=== PATIENT | female | born 1960 | race Caucasian/White ===

== ENCOUNTER 2017-01-17 18:19 | Observation (INO) | payer OTHER ==
[~2017-01-17 18:19] MED LIST: CIPR500T2 PO; METR-1 PO; OXYC-360 PO; Z.0.NO CURRENT MEDS
[2017-01-17] MEDS ORDERED: ASPIRIN 81 MG CHEW TAB PO ONE (18:30)
[2017-01-17] MEDS ORDERED: SODIUM CHLORIDE 0.9% FLUSH 10 ML FLUSH IVF PRN (18:30)
[2017-01-17 18:33] VITALS: BP 150/79; PULSE 73; RESP 16; TEMP 98.7; O2SAT 98
[2017-01-17 18:35] VITALS: O2SAT 98
[2017-01-17 18:38] LABS: AUTOMATED NEUTROPHIL # 6.3 TH/MM3 (1.8-7.7); BASOPHIL % 0.4 % (0.0-2.0); EOSINOPHIL # 0.5 TH/MM3 (0-0.4); EOSINOPHIL % 5.1 % (0.0-4.0); HEMATOCRIT 40.6 % (35.0-46.0); HEMO FLAGS DIFF FINAL; LYMPH % 21.5 % (9.0-44.0); MEAN CELL VOLUME 86.2 FL (80.0-100.0); MEAN CORPUSCULAR HEMOGLOBIN 28.9 PG (27.0-34.0); MEAN CORPUSCULAR HGB CONC 33.5 % (32.0-36.0); MONO % 4.6 % (0.0-8.0); NEUT % 68.4 % (16.0-70.0); PLATELET COUNT 215 TH/MM3 (150-450); RED BLOOD COUNT 4.71 MIL/MM3 (4.00-5.30); RED CELL DISTRIBUTION WIDTH 12.8 % (11.6-17.2); WHITE BLOOD COUNT 9.2 TH/MM3 (4.0-11.0)
[2017-01-17] MEDS ORDERED: VENTAER INH (18:39)
[2017-01-17] MEDS ORDERED: ADVA250A INH (18:39)
--- NOTE | 2017-01-17 18:39 | RADHPO ---
EXAM DATE/TIME: 01/17/2017 18:35 [facility] COMPARISON: No previous studies available for comparison. INDICATIONS : Chest pain for 30 minutes MEDICAL HISTORY : None. SURGICAL HISTORY : None. ENCOUNTER: Initial ACUITY: 1 day PAIN SCORE: 8/10 LOCATION: Left chest FINDINGS: A single view of the chest demonstrates the lungs to be symmetrically aerated without evidence of mas s, infiltrate or effusion. The cardiomediastinal contours are unremarkable. Osseous structures are intact. CONCLUSION: No acute disease. Lupillo Pretty MD on January 17, 2017 at 18:37 Board Certified Radiologist. This report was verified electronically.
--- NOTE | 2017-01-17 18:42 | PD ---
HPI Chief Complaint: Chest Pain Time Seen by Provider: 18:27 Travel History International Travel<30 days: No Contact w/Intl Traveler<30days: No Traveled to known affect area: No History of Present Illness HPI Patient is a 57-year-old female presents emergency department for complaints of chest discomfort in the middle of her chest and epigastric area. Patient states started approximately 2030 minutes prior to arrival. She states she was just sitting in a chair when it started. She did not associate with any food. She states she's never had pain like this before. States was fairly mild now but was moderate prior to arrival. She did not try anything prior to arrival. Patient states she did have a stress test years ago for left-sided chest pain which is not similar to current. Denies any nausea vomiting shortness of breath abdominal pain back pain. PFSH Past Medical History Asthma: Yes ("SEASONAL") Anxiety: Yes Depression: Yes Menopausal: Yes Past Surgical History Section: Yes Other Surgery: Yes (SINUS SX) Social History Alcohol Use: No Tobacco Use: No Substance Use: No Allergies-Medications (Allergen,Severity, Reaction): Coded Allergies: Erythromycin (Verified Allergy, Severe, 01/17/17) Penicillin (Verified Allergy, Severe, HIVES, 01/17/17) Sulfa (Verified Allergy, Severe, HIVES, 01/17/17) Reported Meds & Prescriptions Reported Meds & Active Scripts Active Reported Ventolin Hfa 18 GM Inh (Albuterol Sulfate) 90 Mcg/Act Aer 1 Puff INH Q4H PRN Advair Diskus Inh (Fluticasone-Salmeterol Inh) 250-50 Mcg/Blist Aer 1 Puff INH BID PRN Rinse mouth after use. Review of Systems Except as stated in HPI: all other systems reviewed are Neg Physical Exam Narrative GENERAL: Well-developed well-nourished, no apparent distress, quite pleasant. SKIN: Focused skin assessment warm/dry. HEAD: Atraumatic. Normocephalic. EYES: Pupils equal and round. No scleral icterus. No injection or drainage. ENT: No nasal bleeding or discharge. Mucous membranes pink and moist. NECK: Trachea midline. No JVD. CARDIOVASCULAR: Regular rate and rhythm. No murmur appreciated. 2+ bilateral equal pulses in all 4 extremities. RESPIRATORY: No accessory muscle use. Clear to auscultation. Breath sounds equal bilaterally. GASTROINTESTINAL: Abdomen soft, non-tender, nondistended. Hepatic and splenic margins not palpable. MUSCULOSKELETAL: No obvious deformities. No clubbing. No cyanosis. No edema. NEUROLOGICAL: Awake and alert. No obvious cranial nerve deficits. Motor grossly within normal limits. Normal speech. PSYCHIATRIC: Appropriate mood and affect; insight and judgment normal. Data Data Last Documented VS Vital Signs Date Time Temp Pulse Resp B/P Pulse Ox O2 Delivery O2 Flow Rate FiO2 01/17/17 19:06 70 16 132/88 98 Room Air 01/17/17 18:33 98.7 Orders Electrocardiogram (01/17/17 18:) Ckmb (Isoenzyme) Profile (01/17/17 18:) Complete Blood Count With Diff (01/17/17) Comprehensive Metabolic Panel (01/17/17) Magnesium (Mg) (01/17/17 18:) Prothrombin Time / Inr (Pt) (01/17/17 18:) Act Partial Throm Time (Ptt) (01/17/17 18:) Troponin I (01/17/17 18:) Chest, Single Ap (01/17/17 18:) Ecg Monitoring (01/17/17 18:) Iv Access Insert/Monitor (01/17/17 18:) Oximetry (01/17/17 18:) Oxygen Administration (01/17/17 18:) Aspirin Chew (Aspirin Chew) (01/17/17 18:30) Sodium Chloride 0.9% Flush (Ns Flush) (01/17/17 18:30) Nitroglycerin Sl (Nitrostat Sl) (01/17/17 18:45) Troponin I (01/17/17 20:21) Admit Order (Ed Use Only) (01/17/17 ) Labs Laboratory Tests Test 01/17/17 01/17/17 18:30 20:20 White Blood Count 9.2 TH/MM3 Red Blood Count 4.71 MIL/MM3 Hemoglobin 13.6 GM/DL Hematocrit 40.6 % Mean Corpuscular Volume 86.2 FL Mean Corpuscular Hemoglobin 28.9 PG Mean Corpuscular Hemoglobin 33.5 % Concent Red Cell Distribution Width 12.8 % Platelet Count 215 TH/MM3 Mean Platelet Volume 7.3 FL Neutrophils (%) (Auto) 68.4 % Lymphocytes (%) (Auto) 21.5 % Monocytes (%) (Auto) 4.6 % Eosinophils (%) (Auto) 5.1 % Basophils (%) (Auto) 0.4 % Neutrophils # (Auto) 6.3 TH/MM3 Lymphocytes # (Auto) 2.0 TH/MM3 Monocytes # (Auto) 0.4 TH/MM3 Eosinophils # (Auto) 0.5 TH/MM3 Basophils # (Auto) 0.0 TH/MM3 CBC Comment DIFF FINAL Differential Comment Prothrombin Time 10.3 SEC Prothromb Time International 0.9 RATIO Ratio Activated Partial 24.4 SEC Thromboplast Time Sodium Level 142 MEQ/L Potassium Level 3.8 MEQ/L Chloride Level 106 MEQ/L Carbon Dioxide Level 26.8 MEQ/L Anion Gap 9 MEQ/L Blood Urea Nitrogen 21 MG/DL Creatinine 0.65 MG/DL Estimat Glomerular Filtration 94 ML/MIN Rate Random Glucose 97 MG/DL Calcium Level 8.5 MG/DL Magnesium Level 1.9 MG/DL Total Bilirubin 0.4 MG/DL Aspartate Amino Transf 13 U/L (AST/SGOT) Alanine Aminotransferase 26 U/L (ALT/SGPT) Alkaline Phosphatase 81 U/L Total Creatine Kinase 94 U/L Troponin I LESS THAN 0.02 LESS THAN 0.02 NG/ML NG/ML Total Protein 6.9 GM/DL Albumin 3.8 GM/DL [facility] Medical Decision Making Medical Screen Exam Complete: Yes Emergency Medical Condition: Yes Interpretation(s) EKG shows normal sinus rhythm normal axis and normal R-wave progression. Q waves in V1 and lead 3 could represent prior septal infarct but significance is undetermined. No previous EKG for comparison. Intervals within normal limits. No concerning ST-T changes. This a borderline EKG. Differential Diagnosis ACS, AMI, reflux, gastritis, gastroenteritis, PE seems highly unlikely, pneumonia. Narrative Course Patient was roomed emergency department, she's been having chest pain for prostatectomy 30 minutes prior to arrival. She was given nitroglycerin which involved her pain may light her but now it feels tight. Patient states that it still was not radiating. She appears comfortable. Initial EKG is nonspecific, troponin is negative. Patient's troponin was repeated once in the emergency department she is only been having chest pain for approximately 30 minutes on arrival. Second troponin was negative. Discussed with the patient that she needs to consider having a stress test and she was offered chest pain observation and she is agreeable to this time. Her heart score is 5. Patient was discussed with Dr. Monteiro for admission and she is agreeable. Diagnosis Primary Impression: Chest pain Qualified Code: R07.9 - Chest pain, unspecified type Admitting Information Admitting Physician Requests: Observation Condition: Stable Chicho Zamora MD January 17, 2017 18:42
[2017-01-17] MEDS ORDERED: NITROGLYCERIN 0.4 MG SL 25 TABS/BTL SL ONE (18:45)
[2017-01-17 18:52] LABS: CHLORIDE 106 MEQ/L (98-107); POTASSIUM 3.8 MEQ/L (3.5-5.1); SODIUM (NA) 142 MEQ/L (136-145)
[2017-01-17 18:55] LABS: ANION GAP 9 MEQ/L (5-15); BICARBONATE 26.8 MEQ/L (21.0-32.0); BLOOD UREA NITROGEN 21 MG/DL (7-18); MAGNESIUM 1.9 MG/DL (1.5-2.5)
[2017-01-17 18:56] LABS: APTT (PATIENT) 24.4 SEC (24.3-30.1); INTERNATIONAL NORMALIZED RATIO 0.9 RATIO; PROTHROMBIN TIME - PATIENT 10.3 SEC (9.8-11.6)
[2017-01-17 18:58] LABS: ALT (GPT) 26 U/L (10-53); AST (GOT) 13 U/L (15-37); GLOMERULAR FILTRATION RATE 94 ML/MIN (>89)
[2017-01-17 19:00] LABS: TOTAL BILIRUBIN ADULT 0.4 MG/DL (0.2-1.0)
[2017-01-17 19:01] LABS: ALKALINE PHOSPHATASE 81 U/L (45-117)
[2017-01-17 19:05] LABS: CREATINE KINASE 94 U/L (26-192)
[2017-01-17 19:06] VITALS: BP 132/88; PULSE 70; RESP 16; O2SAT 98
[2017-01-17 21:59] VITALS: BP 139/85; PULSE 63; RESP 16; O2SAT 100
[2017-01-17] MEDS ORDERED: SODIUM CHLORIDE 0.9% FLUSH 10 ML FLUSH IV FLUSH PRN (22:00)
[2017-01-17 22:20] VITALS: BP 123/81; PULSE 61; RESP 18; TEMP 97.1; O2SAT 100
[2017-01-17 23:07] VITALS: O2SAT 98
[2017-01-18] VITALS: BP 119/64; PULSE 67; RESP 20; TEMP 97.6; O2SAT 98
[2017-01-18 03:09] LABS: CREATINE KINASE 76 U/L (26-192)
[2017-01-18 04:00] VITALS: BP 117/60; PULSE 60; RESP 20; TEMP 97.8; O2SAT 96
--- NOTE | 2017-01-18 07:34 | HHI.HP ---
[facility] Service [place] [facility] Primary Care Physician Dariela Mayer MD Admission Diagnosis Chest Pain Diagnoses: (1) Chest pain Diagnosis: Principal (2) Hyperlipidemia Diagnosis: Secondary (3) Asthma Diagnosis: Secondary Chief Complaint: Chest pain Travel History International Travel<30 Days: No Contact w/Intl Traveler <30 Da: No Traveled to Known Affected Are: No History of Present Illness 57-year-old female with known history of asthma, hyperlipidemia, right hip pain who presented to the hospital because of acute onset chest pain. Patient states that she is in normal state of health until yesterday at 6 PM when she was sitting without doing any exertion and developed a acute onset chest discomfort located in the lower mid sternum and epigastric region without any radiation to neck, back, shoulder, arm, she denied any nausea, vomiting, diaphoresis, shortness of breath, dyspnea, lightheadedness, dizziness. She states the pain was 8/10 on a pain scale and described as a sharp pain. By time she came to emergency department which was approximately 15 minutes the sharp pain had subsided and she had a dull achy pain along the lower left sternal border. Patient was given aspirin and nitroglycerin emergency department with complete relief of her chest discomfort. Patient states that 10 years ago she had chest discomfort that radiated into the left anterior chest pain, however, this pain was different. At that time she underwent an exercise stress test which was normal. The patient states that her allergies has been acting up over the last week and she has been taking Claritin-D over the last 4 days. She has risk factors to include age, hyperlipidemia, family history of heart disease. Because of those reasons is recommended by the ER physician that the patient be observed and chest pain center. At the time evaluating the patient she is asymptomatic. She has not had any recurrence of any discomfort Review of Systems Constitutional: DENIES: Diaphoretic episodes, Fatigue, Fever, Weight gain, Weight loss, Chills, Dizziness, Change in appetite, Night Sweats Eyes: DENIES: Blurred vision, Diplopia, Eye inflammation, Eye pain, Vision loss , Double Vision Ears, nose, mouth, throat: COMPLAINS OF: Sinus Pain, DENIES: Vertigo, Nasal discharge, Throat pain, Ear Pain, Running Nose Respiratory: DENIES: Apneas, Cough, Snoring, Wheezing, Hemoptysis, Sputum production, Shortness of breath Cardiovascular: COMPLAINS OF: Chest pain, DENIES: Palpitations, Syncope, Dyspnea on Exertion, Lower Extremity Edema, Orthopnea Gastrointestinal: DENIES: Abdominal pain, Black stools, Bloody stools, Constipation, Diarrhea, Nausea, Vomiting, Difficulty Swallowing, Anorexia Neurologic: DENIES: Abnormal gait, Headache, Localized weakness, Paresthesias, Seizures, Speech Problems, Tremor, Poor Balance Psychiatric: COMPLAINS OF: Anxiety, Depression Past Family Social History Past Medical History Seasonal allergies Asthma Right hip pain Hyperlipidemia, untreated Anxiety/depression Past Surgical History Right hip surgery Sinus surgery Reported Medications Reported Meds & Active Scripts Active Reported Xopenex inhaler 2 Puff INH Q4H PRN Advair Diskus Inh (Fluticasone-Salmeterol Inh) 250-50 Mcg/Blist Aer 1 Puff INH BID PRN Rinse mouth after use. Allergies: Coded Allergies: Erythromycin (Verified Allergy, Severe, 01/17/17) Penicillin (Verified Allergy, Severe, HIVES, 01/17/17) Sulfa (Verified Allergy, Severe, HIVES, 01/17/17) Family History Reviewed is significant for father having congestive heart failure, mother with atherosclerotic disease requiring bilateral carotid endarterectomies Social History Patient denies any tobacco or illicit drugs. Does drink alcohol occasionally Physical Exam Vital Signs Vital Signs Date Time Temp Pulse Resp B/P Pulse Ox O2 Delivery O2 Flow Rate FiO2 01/18/17 04:00 97.8 60 20 117/60 96 01/18/17 00:00 97.6 67 20 119/64 98 01/17/17 23:07 98 21 01/17/17 22:20 97.1 61 18 123/81 100 01/17/17 21:59 63 16 139/85 100 Room Air 01/17/17 19:06 70 16 132/88 98 Room Air 01/17/17 18:54 70 Room Air 01/17/17 18:35 98 Room Air 01/17/17 18:35 98 Room Air 01/17/17 18:33 98.7 73 16 150/79 98 Physical Exam GENERAL: Well-developed, well-nourished, in no acute distress. alert and orientated HEENT: Head is normocephalic without any lesions or masses noted. Facial features are symmetric. Eyes: Pupils equal round reactive to light. Extraocular muscles are intact. Conjunctivae were clear. Oropharyngeal: Pharynx without any erythema edema. Tongue is midline without deviation. Buccal mucosa is moist without any masses or lesions NECK: Supple without any masses. Trachea midline no deviation. No JVD, no bruits are appreciated CARDIAC: Regular rhythm, regular rate. S1/S2 are heard. No murmurs gallops or rubs. LUNGS: Bilateral wheeze noted, no rhonchi or rales. No use of accessory muscles on inspiration or expiration. ABDOMEN: Soft, nontender. Nondistended. Bowel sounds heard in all 4 quadrants. No organomegaly or masses. Negative rebound, negative guarding EXTREMITIES: No edema, pulses are equal bilaterally. No cyanosis or clubbing NEUROLOGY: Mood and affect appear appropriate. Cranial nerves II through XII grossly intact. Muscle strength 5/5 in upper and lower extremities bilaterally. Deep tendon reflexes are 2+ in upper and lower extremities bilaterally. Laboratory Laboratory Tests Test 01/17/17 01/17/17 01/18/17 18:30 20:20 02:40 White Blood Count 9.2 Red Blood Count 4.71 Hemoglobin 13.6 Hematocrit 40.6 Mean Corpuscular Volume 86.2 Mean Corpuscular Hemoglobin 28.9 Mean Corpuscular Hemoglobin 33.5 Concent Red Cell Distribution Width 12.8 Platelet Count 215 Mean Platelet Volume 7.3 Neutrophils (%) (Auto) 68.4 Lymphocytes (%) (Auto) 21.5 Monocytes (%) (Auto) 4.6 Eosinophils (%) (Auto) 5.1 Basophils (%) (Auto) 0.4 Neutrophils # (Auto) 6.3 Lymphocytes # (Auto) 2.0 Monocytes # (Auto) 0.4 Eosinophils # (Auto) 0.5 Basophils # (Auto) 0.0 CBC Comment DIFF FINAL Differential Comment Prothrombin Time 10.3 Prothromb Time International 0.9 Ratio Activated Partial 24.4 Thromboplast Time Sodium Level 142 Potassium Level 3.8 Chloride Level 106 Carbon Dioxide Level 26.8 Anion Gap 9 Blood Urea Nitrogen 21 Creatinine 0.65 Estimat Glomerular Filtration 94 Rate Random Glucose 97 Calcium Level 8.5 Magnesium Level 1.9 Total Bilirubin 0.4 Aspartate Amino Transf 13 (AST/SGOT) Alanine Aminotransferase 26 (ALT/SGPT) Alkaline Phosphatase 81 Total Creatine Kinase 94 76 Troponin I LESS THAN 0.02 LESS THAN 0.02 LESS THAN 0.02 Total Protein 6.9 Albumin 3.8 Result Diagram: 01/17/17182901/17/171829 Imaging Last Impressions Chest X-Ray 01/17/171826 Signed Impressions: Service Date/Time: Tuesday, January 17, 2017 18:35 - CONCLUSION: No acute disease. Lupillo Pretty MD Assessment and Plan Assessment and Plan Chest pain, atypical Patient with increased risk factors to include age, hyperlipidemia, family history of heart disease Patient has been ruled out for acute coronary event with serial cardiac enzymes are reviewed by myself which were negative EKGs were performed and reviewed by myself which shows sinus rhythm possible septal infarct age indeterminate Patient states that she cannot undergo an exercise stress test because of right hip, will pursue nuclear stress test rule out any underlying ischemia. Nuclear stress test was unremarkable. Patient symptoms completely resolved. She is cleared for discharge. Patient be continued on aspirin and nitroglycerin as needed Asthma Resume patient Xopenex HFA inhaler as needed for shortness of breath and wheeze DVT prevention Low risk, early ambulation Written by Charlie Arndt, acting as scribe for Dr. Taylor on 01/18/17 at 07: 32. This note was transcribed by scribe [Charlie Arndt]. I, Dr. Sola Taylor personally performed the history, physical exam, and medical decision making; and confirmed the accuracy of the information in the transcribed note. Authenticated by Dr. Sola Taylor on 01/18/17 at 12:06. Discharge disposition Discharge home in stable condition Activity: Ad salvador. Diet: Healthy heart diet Medications per medication reconciliation Follow-up primary medical doctor in one week Problem Qualifiers (1) Chest pain: Qualified Code: R07.9 - Chest pain, unspecified type (2) Hyperlipidemia: Qualified Code: E78.5 - Hyperlipidemia, unspecified hyperlipidemia type (3) Asthma: Qualified Code: J45.909 - Uncomplicated asthma, unspecified asthma severity Charlie Arndt January 18, 2017 07:34 Sola Taylor MD January 18, 2017 12:06
[2017-01-18 08:00] VITALS: BP 136/76; PULSE 61; RESP 20; TEMP 98; O2SAT 97
[2017-01-18] MEDS ORDERED: XOPENEX INH PRN (08:00)
[2017-01-18] MEDS ORDERED: RESP: LEVALBUTEROL HYDROCHLORIDE 0.63 MG/3 ML NEB (PRN) NEB (08:45)
[2017-01-18] MEDS ORDERED: BUDESONIDE-FORMOTEROL 160/4.5 MCG INHALER INH SCH (09:00)
[2017-01-18] MEDS ORDERED: SODIUM CHLORIDE 0.9% FLUSH 10 ML FLUSH SCH (09:00)
[2017-01-18 09:49] VITALS: O2SAT 97
[2017-01-18] MEDS ORDERED: REGADENOSON INJ 0.4 MG/5 ML SYR IV ONE (10:12)
--- NOTE | 2017-01-18 11:48 | RADHPO ---
EXAM DATE/TIME: 01/18/2017 10:13 [facility] COMPARISON: No previous studies available for comparison. INDICATIONS : Midsternal chest pain. Angina. DOSE: 27 mCi Tc99m Myoview at stress. 8.8 mCi Tc99m Myoview at rest. 0.4 mg Lexiscan STRESS SYMPTOMS: Chest tightness, throat tightness and stomach pain. EJECTION FRACTION: > 70% MEDICAL HISTORY : Chronic obstructive pulmonary disease. Hypercholesterolemia. SURGICAL HISTORY : section. ENCOUNTER: Initial ACUITY: 1 day PAIN SCALE: 4/10 LOCATION: Midsternal chest TECHNIQUE: The patient underwent pharmacologic stress with infusion of prescribed dose. Continuous ECG tracing was monitored during stress. Gated SPECT imaging was performed after stress and conventional SPECT i maging was performed at rest. The examination was performed on a SPECT/CT scanner, both attenuation and non-corrected datasets were reviewed. FINDINGS: DISTRIBUTION: The maximum perfused segment at stress is in the anterior wall. PERFUSION STUDY: The pattern of perfusion at stress is within normal limits. GATED STUDY: There is intact wall motion and thickening without hypokinetic or dyskinetic segments. CONCLUSION: Unremarkable myocardial perfusion scan without evidence of fixed or reversible perfusion abnormalitie s. Normal wall motion and ejection fraction. RISK CATEGORY: Low (<1% Annual Mortality Rate) Mckinley Otoole MD on January 18, 2017 at 11:43 Board Certified Radiologist. This report was verified electronically.
[2017-01-18 12:00] VITALS: BP 132/75; PULSE 70; RESP 20; TEMP 96.5; O2SAT 99
--- NOTE | 2017-01-18 14:08 | HHI.DCPOC ---
Discharge Care Plan Diagnosis: (1) Chest pain Goals to Promote Your Health * To prevent worsening of your condition and complications * To maintain your health at the optimal level Directions to Meet Your Goals Take your medications as prescribed Follow your dietary instruction Follow activity as directed Keep your appointments as scheduled Take your immunizations and boosters as scheduled If your symptoms worsen call your PCP, if no PCP go to Urgent Care Center or Emergency Room Smoking is Dangerous to Your Health. Avoid second hand smoke Call the 24-hour hour crisis hotline for domestic abuse at Charlie Arndt January 18, 2017 14:08
--- NOTE | 2017-01-18 15:51 | EKG ---
Date Performed: 01/18/2017 Time Performed: 08:01:38 PTAGE: 57 years EKG: Sinus bradycardia. Possible septal infarct - age undetermined Abnormal ECG PREVIOUS TRACING : 01/17/2017 18.20 Compared to prior tracing no significant change DOCTOR: Arnol Moscoso Interpretating Date/Time 01/18/2017 15:50:57
--- NOTE | 2017-01-18 15:51 | EKG ---
Date Performed: 01/17/2017 Time Performed: 18:20:04 PTAGE: 57 years EKG: Sinus rhythm . Possible septal infarct - age undetermined Abnormal ECG NO PREVIOUS TRACING No signficiant change. DOCTOR: Arnol Moscoso Interpretating Date/Time 01/18/2017 15:50:49
--- NOTE | 2017-01-19 09:33 | TR ---
Date Performed: 01/18/2017 Time Performed: 10:40:14 DOCTOR: Anastasiia Aaron DRUG LIST: CLINICAL HISTORY: REASON FOR TEST: Chest pain REASON FOR ENDING: OBSERVATION: CONCLUSION: Lexiscan stress test was performed under standard four minute protocol. Radionuclid e was injected one minute prior to ending the test. No electrocardiographic abormalities were present to suggest ischemia. Nuclear imaging and interpretation are pending. COMMENTS:
[2017-01-19] MEDS ORDERED: INFLUENZA VIRUS VACCINE (QUADRIVALENT) 0.5 ML SYR IM ONE (10:00)
== END 2017-01-18 15:33 | disposition home or self-care (01) ==
LOC: PHED 18:19 → PHEDA 21:35 → PH3A 22:20
PROVIDERS: ADMIT Family Medicine; ATTEND Family Medicine
DX: R07.89 Other chest pain (principal); E78.5 Hyperlipidemia, unspecified; J45.909 Unspecified asthma, uncomplicated; Z82.49 Family history of ischemic heart disease and other diseases of the circulatory system; Z88.1 Allergy status to other antibiotic agents; Z88.0 Allergy status to penicillin; Z88.2 Allergy status to sulfonamides; Z79.51 Long term (current) use of inhaled steroids
CPT/HCPCS: 71010; 78452; 80053; 82550; 83735; 84484; 85025; 85610; 85730; 93005; 93017; 94664; 99285; A9502; G0378; J2785; J7614

== ENCOUNTER 2017-09-08 08:43 | Emergency (ER) | payer OTHER ==
[~2017-09-08] VITALS: Ht 154.9 cm; Wt 73.0 kg
[~2017-09-08 08:43] MED LIST changes: +ADVA250A INH; -CIPR500T2 PO; -METR-1 PO; -OXYC-360 PO; +VENTAER INH; -Z.0.NO CURRENT MEDS
[2017-09-08 08:49] VITALS: BP 108/54; PULSE 78; RESP 16; TEMP 98.9; O2SAT 99
[2017-09-08] MEDS ORDERED: ZOLO100T PO (08:59)
[2017-09-08] MEDS ORDERED: ASPI-516 CHEW (08:59)
[2017-09-08] MEDS ORDERED: HYDR-755 PO (08:59)
[2017-09-08] MEDS ORDERED: WELLTAB39 PO (08:59)
[2017-09-08] MEDS ORDERED: HYDR-3580 PO (08:59)
[2017-09-08] MEDS ORDERED: CEPH-460 PO (09:07)
--- NOTE | 2017-09-08 09:08 | PD ---
HPI Chief Complaint: Oral / Dental Pain or Problem Time Seen by Provider: 09:04 Travel History International Travel<30 days: No Contact w/Intl Traveler<30days: No Traveled to known affect area: No History of Present Illness HPI This 57-year-old female has noted a sore in her mouth. It has been present for about a day. She has not had any fever. She didn't have a hip replacement done a few days ago and was told to be very cautious about any infection. She has been doing well with respect to the hip replacement. She's been ambulatory PFSH Past Medical History Arthritis: Yes Asthma: Yes Autoimmune Disease: No Anxiety: Yes Depression: Yes Heart Rhythm Problems: No Cancer: No Cardiovascular Problems: No High Cholesterol: Yes Chemotherapy: No Chest Pain: Yes (10 years ago, stress test negative) Congestive Heart Failure: No COPD: Yes Cerebrovascular Accident: No Diabetes: No Endocrine: No GERD: No Genitourinary: No Hiatal Hernia: No Immune Disorder: No Kidney Stones: No Musculoskeletal: Yes (R hip substantial tear) Neurologic: No Psychiatric: No Reproductive: No Respiratory: No Migraines: Yes Radiation Therapy: No Renal Failure: No Seizures: No Sickle Cell Disease: No Sleep Apnea: No Thyroid Disease: No Ulcer: No Menopausal: Yes Past Surgical History Abdominal Surgery: Yes (c section) AICD: No Arteriovenous Shunt: No Cardiac Surgery: No Section: Yes Ear Surgery: No Endocrine Surgery: No Eye Surgery: No Genitourinary Surgery: No Gynecologic Surgery: Yes (c section) Insulin Pump: No Joint Replacement: No Oral Surgery: No Pacemaker: No Thoracic Surgery: No Other Surgery: Yes (SINUS SX) Social History Alcohol Use: No Tobacco Use: No Substance Use: No Allergies-Medications (Allergen,Severity, Reaction): Coded Allergies: Sulfa (Sulfonamide Antibiotics) (Unverified Allergy, Severe, HIVES, ) erythromycin base (Unverified Allergy, Severe, 09/08/17) penicillin G (Unverified Allergy, Severe, HIVES, 09/08/17) Reported Meds & Prescriptions Reported Meds & Active Scripts Active Reported Hydroxyzine HCl 10 Mg Tab 10 Mg PO BID Aspirin 81 Mg Chew 81 Mg CHEW DAILY Hydrocodone-Acetaminophen 7.5 Mg-325 Mg Tab 1 Tab PO Q4H PRN Wellbutrin Xl 24 HR (Bupropion HCl) 300 Mg Tab 300 Mg PO DAILY Zoloft (Sertraline HCl) 100 Mg Tab 100 Mg PO DAILY Review of Systems Except as stated in HPI: all other systems reviewed are Neg General / Constitutional: No: Fever, Chills Eyes: No: Diploplia HENT: Positive: Dental Difficulties Cardiovascular: No: Chest Pain or Discomfort Neurologic: No: Weakness, Dizziness Physical Exam Narrative GENERAL: Well-developed female SKIN: Focused skin assessment warm/dry. HEAD: Atraumatic. Normocephalic. EYES: Pupils equal and round. No scleral icterus. No injection or drainage. ENT: No nasal bleeding or discharge. Mucous membranes pink and moist. On the right side of the hard palate is a lesion that measures about 3-4 mm. There is some surrounding erythema. There is no purulent drainage NECK: Trachea midline. No JVD. . MUSCULOSKELETAL: No obvious deformities. No clubbing. No cyanosis. No edema. NEUROLOGICAL: Awake and alert. No obvious cranial nerve deficits. Motor grossly within normal limits. Normal speech. PSYCHIATRIC: Appropriate mood and affect; insight and judgment normal. Data Data Last Documented VS Vital Signs Date Time Temp Pulse Resp B/P (MAP) Pulse Ox O2 Delivery O2 Flow Rate FiO2 09/08/17 08:49 98.9 78 16 108/54 (72) 99 MDM Medical Decision Making Medical Screen Exam Complete: Yes Emergency Medical Condition: Yes Medical Record Reviewed: Yes Differential Diagnosis Differential includes viral infection, canker sore, mild infection Narrative Course This is most likely a viral infection however she is immediately postop and will be covered with Keflex in the event bacterial superinfection develops Diagnosis Primary Impression: Infection of mouth Scripts Cephalexin (Keflex) 500 Mg Capsule 500 MG PO Q6H for Infection for 7 Days, #28 CAP 0 Refills Prov: Ulices Ibrahim MD 09/08/17 Disposition: 01 DISCHARGE HOME Condition: Stable Ulices Ibrahim MD Sep 08, 2017 09:08
== END 2017-09-08 09:28 | disposition home or self-care (01) ==
LOC: PHEFT 08:43
DX: B99.8 Other infectious disease (principal); K13.70 Unspecified lesions of oral mucosa; E78.00 Pure hypercholesterolemia, unspecified; F41.8 Other specified anxiety disorders; Z98.890 Other specified postprocedural states; Z87.39 Personal history of other diseases of the musculoskeletal system and connective tissue; Z87.09 Personal history of other diseases of the respiratory system; Z86.69 Personal history of other diseases of the nervous system and sense organs
CPT/HCPCS: 99283